=== PATIENT | male | born 1980 | race Hispanic/Latino ===

== ENCOUNTER 2018-07-04 18:38 | Emergency (ER) | payer BC, OTHER ==
[2018-07-04] MEDS ORDERED: Absorbable Gelatin Sponge Size 12-7 TP ONE (19:10)
--- NOTE | 2018-07-04 19:16 | ED PDOC ---
Upper Extremity Pain/Injury Time Seen by Provider: 07/04/18 18:50 Chief Complaint (Nursing): Finger,Hand,&Wrist Chief Complaint (Provider): Finger,Hand,&Wrist History Per: Patient History/Exam Limitations: no limitations Onset/Duration Of Symptoms: Hrs (x1) Current Symptoms Are (Timing): Still Present Additional Complaint(s): 38 year old male with no significant past medical history presents to the ED with a right thumb injury that happened an hour ago while using a mandoline slicer. Patient reports pain is a 1 out of 10 in severity. Wound continued bleeding, prompting ED visit. He is right hand dominant. Tetanus is UTD. No other complaints. PMD: [place] Tetanus: UTD Past Medical History Reviewed: Historical Data, Nursing Documentation, Vital Signs Vital Signs: Last Vital Signs Temp 97.5 F L 07/04/18 18:45 Pulse 72 07/04/18 18:45 Resp 14 07/04/18 18:45 BP 133/91 H 07/04/18 18:45 Pulse Ox 99 07/04/18 18:45 - Medical History PMH: No Chronic Diseases - Surgical History Other surgeries: right meniscus repair - Family History Family History: States: Unknown Family Hx - Immunization History Hx Tetanus Toxoid Vaccination: Yes - Home Medications Home Medications: Ambulatory Orders Medication Instructions Recorded Acetaminophen with Codeine 1 tab PO Q6H PRN #10 tab 03/13/16 [Tylenol with Codeine No. 3 300 mg-30 mg] Aspirin/Caffeine [Diana Back & 1 tab PO PRN PRN 03/13/16 Body Caplet] Ibuprofen [Motrin] 600 mg PO Q6H PRN #20 tab 03/13/16 RX: Bacitracin Ointment 1 applic TOP BID #1 tube 07/04/18 [Bacitracin] - Allergies Allergies/Adverse Reactions: Allergies Allergy/AdvReac Type Severity Reaction Status Date / Time No Known Allergies Allergy Verified 07/04/18 18:45 Review of Systems ROS Statement: Except As Marked, All Systems Reviewed And Found Negative Skin: Positive for: Other (right finger injury) Physical Exam - Reviewed Nursing Documentation Reviewed: Yes Vital Signs Reviewed: Yes - Physical Exam Comments: GENERAL APPEARANCE: Patient is awake, alert, oriented x 3, resting comfortably in no acute distress. SKIN: Warm, dry; (-) cyanosis. NECK: Supple, FROM CHEST AND RESPIRATORY: (-) rales, (-) rhonchi, (-) wheezes; breath sounds equal bilaterally. Respirations even and nonlabored. HEART AND CARDIOVASCULAR: (-) irregularity RIGHT HAND: To the medial aspect of the distal right thumb: 0.5 cm x 1 cm superficial skin avulsion with active bleeding; (-) edema, (-) nail involvement, (-) ecchymosis. Sensation intact, cap refill intact. Full ROM of all digits. Remainder of upper extremity: FROM with (-) tenderness. NEURO AND PSYCH: Mental status as above. Gait: steady. Speech: clear. (-) facial asymmetry - ECG O2 Sat by Pulse Oximetry: 99 (RA) Pulse Ox Interpretation: Normal Medical Decision Making Medical Decision Making: Time: 1909 Clinical Impression: Skin avulsion of right thumb --Wound irrigated with saline. Gel foam dressing applied by Crwo ARMANDO with adequate hemostasis. Educated on wound care. Based on history, exam and diagnostic results, plan will be for outpatient follow up. Patient instructed to follow-up with pmd / referral provided / the clinic in 1- 2 days without fail. Advised to take medication as prescribed. Return to the emergency room at any time for any new or worsening symptoms. Patient states he fully agrees with and understands discharge instructions. States that he agrees with the plan and disposition. Verbalized and repeated discharge instructions and plan. I have given the patient opportunity to ask any additional questions. Scribe Attestation: Documented by Alaina Reddy, acting as a scribe for Steph Maria PA-C. Attestation: All medical record entries made by the Scribe were at my direction and personally dictated by me. I have reviewed the chart and agree that the record accurately reflects my personal performance of the history, physical exam, medical decision making, and the department course for this patient. I have also personally directed, reviewed, and agree with the discharge instructions and disposition. Disposition - Clinical Impression Clinical Impression: Avulsion of skin of finger - Patient ED Disposition Is Patient to be Admitted: No Counseled Patient/Family Regarding: Studies Performed, Diagnosis, Need For Followup, Rx Given - Disposition Referrals: Monty Moya MD [Family Provider] - Disposition: Routine/Home Disposition Time: 19:50 Condition: STABLE Additional Instructions: The emergency medical care you received today was directed at your acute symptoms. If you were prescribed any medication, please fill it and take as directed. It may take several days for your symptoms to resolve. Return to the Emergency Department if your symptoms worsen, do not improve, or if you have any other problems. Please contact your doctor in 2 days for re-evaluation and follow up / or call one of the physicians/clinics you have been referred to that are listed on the Patient Visit Information form that is included in your discharge packet. Bring any paperwork you were given at discharge with you along with any medications you are taking to your follow up visit. Our treatment cannot replace ongoing medical care by a primary care provider (PCP) outside of the emergency department. Prescriptions: RX: Bacitracin Ointment [Bacitracin] 1 applic TOP BID #1 tube Instructions: Wound Care (DC), Common Finger Injuries Forms: [facility] [place] (Swazi) Print Language: WELSH - POA Present On Arrival: None
[2018-07-04 20:24] VITALS: BP 122/70; PULSE 82; RESP 18; TEMP 98
[2018-07-05 14:39] VITALS: O2SAT 99
== END 2018-07-04 20:22 | disposition home or self-care (01) ==
LOC: H.ER 18:38
DX: S61.101A Unspecified open wound of right thumb with damage to nail, initial encounter (principal); W26.8XXA Contact with other sharp object(s), not elsewhere classified, initial encounter; Y92.89 Other specified places as the place of occurrence of the external cause